=== PATIENT | male | born 1990 | race African-American/Black ===

== ENCOUNTER 2016-11-15 10:16 | Emergency (ER) | payer OTHER ==
[~2016-11-15] VITALS: Ht 177.8 cm; Wt 79.5 kg
[~2016-11-15 10:16] MED LIST: CLON1 PO; HALO5L PO; LITH600 PO; PALI39DI IM; QUET200T PO; TRAZ-147 PO
[2016-11-15] MEDS ORDERED: ISON100L PO (10:28)
[2016-11-15] MEDS ORDERED: BUSP10TA23 PO (10:28)
[2016-11-15] MEDS ORDERED: GABA-531 PO (10:28)
[2016-11-15] MEDS ORDERED: OLAN10TA3 PO (10:28)
[2016-11-15 11:16] VITALS: BP 129/81
== END 2016-11-15 11:18 | disposition home or self-care (01) ==
LOC: EMS 10:21
DX: R04.0 Epistaxis (principal); F17.210 Nicotine dependence, cigarettes, uncomplicated; F15.90 Other stimulant use, unspecified, uncomplicated; Z88.8 Allergy status to other drugs, medicaments and biological substances
CPT/HCPCS: 99283